=== PATIENT | female | born 1990 | race Caucasian/White ===

== ENCOUNTER 2016-05-05 11:04 | Emergency (ER) | payer MEDICAID ==
[2016-05-05 11:24] VITALS: BP 128/70
[2016-05-05] MEDS ORDERED: Acetaminophen/HYDROcodone 325-5 MG Tab PO ONE (12:10)
--- NOTE | 2016-05-05 17:28 | ER ---
DATE SEEN: 05/05/2016 TIME SEEN: The patient was seen at 1155 hours. HISTORY OF PRESENT ILLNESS: This 25-year-old, single, nonsmoking woman comes with a history of onset of sore throat with cough on 05/03/2016. This has been associated with mild headache. She is status post biopsy of left upper arm with resultant dehiscence of the wound after it was excised. The results of this are indeterminate at this point. She is not having a menstrual cycle, because she has a Mirena ring. No . Had Tylenol at 0600 hours today. ALLERGIES: None. SERIOUS ILLNESSES: None. MEDICATIONS: None. REVIEW OF SYSTEMS: Negative. PHYSICAL EXAMINATION: VITAL SIGNS: Blood pressure 128/70, heart rate 94, respirations 18, oxygen saturation 100%, temperature 37.4 degrees. GENERAL: The patient has a dry, hacky cough. Appears uncomfortable. She goes into paroxysms of coughing. HEENT: TMs negative. Pharynx, mild erythema. Minimal cervical adenopathy. NECK: Supple. LUNGS: Clear without rales, rhonchi, or wheezes. HEART: S1, S2. No murmur. ABDOMEN: Soft. No hepatosplenomegaly. DERMIS: Negative. LABORATORY DATA: Rapid strep negative. ASSESSMENT: 1. Viral bronchitis, tracheitis. 2. Secondhand smoke exposure. 3. Status post 04/24/2016 skin biopsy and excision of lesion, left lateral upperarm, with dehiscence of the wound. PLAN: 1. She was given 1 dose of Vicodin and her paroxysms of coughing stopped. Face mask utilized. Prescription given for Vicodin for paroxysms of coughing. 2. Use Tylenol and ibuprofen and for breakthrough coughing, use codeine or Vicodin. Follow up with doctor as needed in 7 days. Otherwise, earlier if worse. Laboratory studies of rapid strep negative. DIAGNOSES: Viral bronchitis, tracheitis. /[id number] VIJAYA/BERNA MARISCAL
== END 2016-05-05 12:45 | disposition home or self-care (01) ==
LOC: FB.ED 11:04
DX: J20.8 Acute bronchitis due to other specified organisms (principal); J04.10 Acute tracheitis without obstruction; B97.89 Other viral agents as the cause of diseases classified elsewhere; Z98.890 Other specified postprocedural states
CPT/HCPCS: 87081; 87430; 99283; A9270

== ENCOUNTER 2021-01-20 10:20 | Emergency (ER) | payer OTHER ==
[2021-01-20] MEDS ORDERED: Acetaminophen/oxyCODONE 325-5 MG Tab PO PRN (10:40)
[2021-01-20] MEDS ORDERED: Cyclobenzaprine 10 MG Tab PO ONE (10:42)
[2021-01-20] MEDS ORDERED: Ketorolac 30 MG/ML SDV IVPUSH ONE (10:42)
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
[2021-01-20 22:29] VITALS: BP 150/99; PULSE 97
== END 2021-01-20 13:05 | disposition home or self-care (01) ==
LOC: FB.ED 10:20
DX: M51.16 Intervertebral disc disorders with radiculopathy, lumbar region (principal); Z88.8 Allergy status to other drugs, medicaments and biological substances
CPT/HCPCS: 72131; 81025; 96374; 99284; A9270; J1885

== ENCOUNTER 2023-05-03 09:02 | Day surgery (SDC) | payer OTHER ==
[~2023-05-03 09:02] MED LIST: Sodium Chloride 0.9% 10 ML Syringe FLUSH PRN
[2023-05-03] MEDS ORDERED: Propofol 200 MG/20 ML SDV IV ONE (09:03)
[2023-05-03] MEDS ORDERED: Ketorolac 30 MG/ML SDV IVPUSH ONE (09:03)
[2023-05-03] MEDS ORDERED: Midazolam 1 MG/ML 2 ML SDV IV ONE (09:03)
[2023-05-03] MEDS ORDERED: diphenhydrAMINE 50 MG/ML SDV IVPUSH ONE (09:03)
[2023-05-03] MEDS ORDERED: fentaNYL 100 MCG/2 ML SDV IV ONE (09:03)
[2023-05-03] MEDS: Lactated Ringers 1,000 ML IV SCH (10:58)
[2023-05-03] MEDS: ceFAZolin 1 GM Vial IVPUSH ONE (11:10)
[2023-05-03] MEDS: Bupivacaine 0.5% 30 ML SDV INJECT ONE (11:43)
[2023-05-03] MEDS: Lidocaine 1% with EPINEPHrine 1:100,000 20 ML MDV INJECT ONE (11:44)
[2023-05-03 13:15] VITALS: BP 112/56; PULSE 44
== END 2023-05-03 14:10 | disposition home or self-care (01) ==
LOC: FB.SDS 09:02
PROVIDERS: ATTEND Surgery
DX: R59.9 Enlarged lymph nodes, unspecified (principal); F41.9 Anxiety disorder, unspecified; Z87.891 Personal history of nicotine dependence; Z79.899 Other long term (current) drug therapy
CPT/HCPCS: 00300; 11426; 38510; 81025; 88305; 88325; 88342; J0665; J0690; J1200; J1885; J2250; J2704; J3010; J7120